=== PATIENT | female | born 1960 | race American Indian/Alaskan Native ===

== ENCOUNTER 2018-05-03 12:42 | Emergency (ER) | payer OTHER ==
--- NOTE | 2018-05-03 12:51 | ED PDOC ---
Arrival/HPI - General Historian: Patient <Rio Cunningham - Last Filed: 05/03/18 18:13> - General Historian: Patient - History of Present Illness Narrative History of Present Illness (Text): This is a 58 year old AA female with PMH of asthma who presents with intermittent dizziness since approximately 1030 am this morning. Pt states that she was sitting at work when the dizziness came on. It is described as feeling lightheaded, and unsteady on her feet. Pt also has nausea with the dizziness, but no vomiting. Pt had blurriness of the left eye for 30 minutes, but states it resolved on its own. Denies fever, chills, cp, sob, abdominal pain, v/d, hematochezia, melena, urinary complaints, cough, congestion, recent travel, sick contacts, care rides greater than 2 hours. PMH: Asthma, tooth extraction 2 weeks ago PSH: parotid gland surgery 19 years ago Meds: inhaler, completed course of amoxicillin for the tooth extraction, Ibuprofen for pain Allx: None Social hx: approximately 30 pack year history, social etoh use, denies illicit drug use Time/Duration: 1-3 hours Symptom Onset: Sudden Symptom Course: Intermittent <Rayshawn James - Last Filed: 05/03/18 20:35> - General Chief Complaint: Dizziness/Lightheaded Time Seen by Provider: 05/03/18 12:44 Past Medical History - Provider Review Nursing Documentation Reviewed: Yes - Infectious Disease Hx of Infectious Diseases: None - Tetanus Immunization Tetanus Immunization: Unknown - Cardiac Hx Cardiac Disorders: No - Pulmonary Hx Asthma: Yes - Neurological Hx Neurological Disorder: No - HEENT Hx HEENT Disorder: No - Renal Hx Renal Disorder: No - Endocrine/Metabolic Other/Comment: parotid gland swelling to left face front of left ear, when pt chews hard c/o drainage from behing right ear ever since having right parotid gland removed, c/o chronic pain to r and l face - Hematological/Oncological Hx Blood Disorders: No - Integumentary Hx Dermatological Disorder: No - Musculoskeletal/Rheumatological Hx Falls: No - Gastrointestinal Hx Gastrointestinal Disorders: No - Genitourinary/Gynecological Hx Genitourinary Disorders: No - Psychiatric Hx Depression: No Hx Emotional Abuse: No Hx Physical Abuse: No Hx Substance Use: No - Surgical History Hx Appendectomy: Yes Hx Carotid Endarterectomy: Yes Other/Comment: ectopic . ovarian cyst removed - Anesthesia Hx Anesthesia: Yes Hx Anesthesia Reactions: No Hx Malignant Hyperthermia: No - Suicidal Assessment Feels Threatened In Home Enviroment: No <Rayshawn James Last Filed: 05/03/18 20:35> Family/Social History - Physician Review Nursing Documentation Reviewed: Yes Family/Social History: Unknown Family HX Smoking Status: Heavy Smoker > 10 Cigarettes Daily Hx Alcohol Use: Yes Hx Substance Use: No Hx Substance Use Treatment: No <Rayshawn James - Last Filed: 05/03/18 20:35> Allergies/Home Meds <Rio Cunningham - Last Filed: 05/03/18 18:13> <Rayshawn James - Last Filed: 05/03/18 20:35> Allergies/Adverse Reactions: Allergies No Known Allergies Allergy (Verified 05/03/18 13:04) Review of Systems - Physician Review All systems were reviewed & negative as marked: Yes <Rio Cunningham - Last Filed: 05/03/18 18:13> - Physician Review All systems were reviewed & negative as marked: Yes - Review of Systems Eyes: Vision Changes (see HPI) Respiratory: Other (asthma requiring albuterol inhaler) Cardiovascular: Normal Gastrointestinal: Nausea. absent: Abdominal Pain, Stool Changes, Vomiting Genitourinary Female: Normal Skin: Normal Neurological: Dizziness Endocrine: Other (hot flashes; menopause) Psychiatric: Anxiety <Rayshawn James - Last Filed: 05/03/18 20:35> Physical Exam Vital Signs Temp Pulse Resp BP Pulse Ox 05/03/18 13:06 98.3 F 86 16 103/50 L 96 <Rio Cunningham - Last Filed: 05/03/18 18:13> Vital Signs Reviewed: Yes Temperature: Afebrile Blood Pressure: Normal (repeat is 133/) Pulse: Regular Respiratory Rate: Normal Appearance: Positive for: Well-Appearing, Non-Toxic Pain Distress: None Mental Status: Positive for: Alert and Oriented X 3 - Systems Exam Head: Present: Atraumatic, Normocephalic Pupils: Present: PERRL Extroacular Muscles: Present: EOMI Conjunctiva: Present: Normal Mouth: Present: Moist Mucous Membranes Neck: Present: Normal Range of Motion, Other ((+) dizziness on rapid neck movement). No: Bruit Respiratory/Chest: Present: Rhonchi (RLL). No: Respiratory Distress, Wheezes, Decreased Breath Sounds, Rales, Tachypneic Cardiovascular: Present: Regular Rate and Rhythm, Normal S1, S2 Abdomen: Present: Normal Bowel Sounds. No: Tenderness, Distention, Rebound, Guarding Upper Extremity: Present: Normal Inspection, NORMAL PULSES Lower Extremity: Present: Normal Inspection, NORMAL PULSES Neurological: Present: GCS=15, CN II-XII Intact, Speech Normal, Motor Func Grossly Intact Skin: Present: Warm Psychiatric: Present: Alert, Oriented x 3, Anxious <Rayshawn James - Last Filed: 05/03/18 20:35> Medical Decision Making ED Course and Treatment: 05/03/18 Patient Seen with Resident: In agreement with resident note which contains more details about the patient. Patient seen and evaluated with resident. Came up with plan and treatment tog ether. Impression: 58 year old female who is complaining of intermittent dizziness with associated nausea that started earlier today. Plan: --EKG -- Antivert -- Zofran -- IV fluids -- Head Ct without contrast -- Labs -- Cardiac enzymes -- CBC -- Chest X-ray - Lab Interpretations Lab Results: 05/03/18 13:55 05/03/18 13:55 Lab Results 05/03/18 13:55: Sodium 139, Potassium 3.7, Chloride 104, Carbon Dioxide 26, Ani [place] 12, BUN 16, Creatinine 1.1, Est GFR ( Amer) > 60, Est GFR (Non-Af Amer) 51, Random Glucose 113 H, Calcium 9.9, Phosphorus 3.3, Magnesium 2.0, Total Bilirubin 0.3, AST 28, ALT 29, Alkaline Phosphatase 80, Troponin I < 0.01, Total Protein 7.5, Albumin 4.4, Globulin 3.1, Albumin/Globulin Ratio 1.4 05/03/18 13:55: WBC 8.1, RBC 4.70, Hgb 13.1, Hct 39.9, MCV 84.9, MCH 27.9, MCHC 32.8, RDW 12.7, Plt Count 281, MPV 10.1, Gran % 51.1, Lymph % (Auto) 41.2 H, [place] % (Auto) 5.3, Eos % (Auto) 2.2, Baso % (Auto) 0.2, Gran # 4.14, Lymph # (Auto) 3.3, [place] # (Auto) 0.4, Eos # (Auto) 0.2, Baso # (Auto) 0.02 I have reviewed the lab results: Yes - RAD Interpretation Narrative RAD Interpretations (Text): 05/03/[address] without contrast: Dictator : Avinash Cordova MD FINDINGS: HEMORRHAGE: No intracranial hemorrhage. BRAIN: No mass effect or edema. No atrophy or chronic microvascular ischemic changes. VENTRICLES: Unremarkable. No hydrocephalus. CALVARIUM: Unremarkable. PARANASAL SINUSES: Unremarkable as visualized. No significant inflammatory changes. MASTOID AIR CELLS: Unremarkable as visualized. No inflammatory changes. OTHER FINDINGS: None. IMPRESSION: No acute findings 05/03/18 Chest X-ray: Dictator : Avinash Cordova MD FINDINGS: LUNGS: No active pulmonary disease. PLEURA: No significant pleural effusion identified, no pneumothorax apparent. CARDIOVASCULAR: No aortic atherosclerotic calcification present. Normal cardiac size. No pulmonary vascular congestion. OSSEOUS STRUCTURES: No significant abnormalities. VISUALIZED UPPER ABDOMEN: Normal. OTHER FINDINGS: None. IMPRESSION: No active disease. Radiology Orders: 05/03/18 13:25 HEAD W/O CONTRAST [CT] Stat CXR [CHEST PORTABLE] [RAD] Stat Afternoon Babysitter: Radiologist - EKG Interpretation EKG Interpretation (Text): 05/03/18 14:56 EKG shows NSR at 94 BPM with LAFB. No T wave inversions or ST depression. Interpreted by me. Interpreted by ED Physician: Yes Type: 12 lead EKG - Medication Orders Current Medication Orders: Discontinued Medications Sodium Chloride (Sodium Chloride 0.9%) 1,000 mls @ 999 mls/hr IV .Q1H1M STA Stop: 05/03/18 14:24 Last Admin: 05/03/18 13:37 Dose: 999 mls/hr eMAR Start Stop Document 05/03/18 13:37 BERTHA (Rec: 05/03/18 13:37 BERTHA [id number]) Intravenous Solution Start Date 05/03/18 Start Time 13:37 End Date 05/03/18 End time 14:37 Total Infusion Time 60 Meclizine HCl (Antivert) 25 mg PO STAT STA Stop: 05/03/18 13:47 Last Admin: 05/03/18 14:26 Dose: 25 mg Ondansetron HCl (Zofran Inj) 4 mg IVP STAT STA Stop: 05/03/18 13:25 Last Admin: 05/03/18 13:36 Dose: 4 mg IVP Administration Document 05/03/18 13:36 BERTHA (Rec: 05/03/18 13:36 BERTHA [id number]) Charges for Administration # of IVP Administrations 1 <Rio Cunningham - Last Filed: 05/03/18 18:13> ED Course and Treatment: 05/03/18 14:18 Pt presents with sudden onset of dizziness and nausea. Head CT without contrast, CBC, CMP, Troponin, CXR. Will give zofran for nausea, as well as meclizine and NS IVF 1 L bolus. On re-evaluation, pt feels better. No dizziness. I ambulated the patient without difficulty. Pt states that she would like to go home. Reassessment Condition: Re-examined, Improved - Lab Interpretations I have reviewed the lab results: Yes <Rayshawn James - Last Filed: 05/03/18 20:35> - Scribe Statement The provider has reviewed the documentation as recorded by the [employer] [place] Provider Scribe Attestation: All medical record entries made by the Scribe were at my direction and personally dictated by me. I have reviewed the chart and agree that the record accurately reflects my personal performance of the history, physical exam, medical decision making, and the department course for this patient. I have also personally directed, reviewed, and agree with the discharge instructions and disposition. <Rio Cunningham - Last Filed: 05/03/18 18:13> Disposition/Present on Arrival - Present on Arrival Any Indicators Present on Arrival: No - Disposition Have Diagnosis and Disposition been Completed?: Yes Disposition Time: 15:33 <Rio Cunningham - Last Filed: 05/03/18 18:13> - Present on Arrival Any Indicators Present on Arrival: No History of DVT/PE: No History of Uncontrolled Diabetes: No Urinary Catheter: No History Surgical Site Infection Following: None - Disposition Have Diagnosis and Disposition been Completed?: Yes Patient Plan: Discharge <Rayshawn James Last Filed: 05/03/18 20:35> - Disposition Diagnosis: Vertigo, Anxiety Disposition: HOME/ ROUTINE Condition: GOOD Discharge Instructions (ExitCare): Vertigo (a Type of Dizziness) (DC), Anxiety, Adult (DC) Prescriptions: Meclizine [Antivert] 12.5 mg PO PRN PRN #10 tab PRN Reason: Motion Sickness Ondansetron ODT [Zofran ODT] 4 mg PO Q6H #4 odt Referrals: Maria T Crowell MD [Medical Doctor] - Follow up with primary [facility] [place] [Outside] - Follow up with primary Forms: [facility] (Sing[place]an), WORK NOTE
[2018-05-03 13:09] VITALS: RESP 16; TEMP 98.3; BMI 30.5
[2018-05-03] MEDS ORDERED: Sodium Chloride 0.9% 1,000 ML IV STA (13:24)
--- NOTE | 2018-05-03 14:04 | RAD ---
Date of service: 05/03/2018 HISTORY: ronchus breath sounds COMPARISON: 09/14/2016 FINDINGS: LUNGS: No active pulmonary disease. PLEURA: No significant pleural effusion identified, no pneumothorax apparent. CARDIOVASCULAR: No aortic atherosclerotic calcification present. Normal cardiac size. No pulmonary vascular congestion. OSSEOUS STRUCTURES: No significant abnormalities. VISUALIZED UPPER ABDOMEN: Normal. OTHER FINDINGS: None. IMPRESSION: No active disease.
[2018-05-03 14:26] LABS: BASO # 0.02 K/mm3 (0.0-2.0); BASO % 0.2 % (0.0-3.0); EOS # 0.2 (0.0-0.7); EOS % 2.2 % (1.5-5.0); GRAN # 4.14 (1.4-6.5); GRAN % 51.1 % (50.0-68.0); HEMOGLOBIN 13.1 g/dL (12.0-16.0); LYMPH # 3.3 (1.2-3.4); LYMPH % 41.2 % (22.0-35.0); MEAN CELL VOLUME 84.9 fl (80.0-105.0); MEAN CORPUSCULAR HEMOGLOBIN 27.9 pg (25.0-35.0); MEAN CORPUSCULAR HGB CONC 32.8 g/dl (31.0-37.0); MEAN PLATELET VOLUME 10.1 fl (7.0-11.0); MONO # 0.4 (0.1-0.6); MONO % 5.3 % (1.0-6.0); RBC 4.7 10^6/uL (3.5-6.1); RED CELL DISTRIBUTION WIDTH 12.7 % (11.5-14.5); WHITE BLOOD COUNT 8.1 10^3/uL (4.5-11.0)
--- NOTE | 2018-05-03 14:29 | CT ---
Date of service: 05/03/2018 PROCEDURE: CT HEAD WITHOUT CONTRAST. HISTORY: dizziness COMPARISON: None available. TECHNIQUE: Axial computed tomography images were obtained through the head/brain without intravenous contrast. Radiation dose: Total exam DLP = 839.63 mGy-cm. This CT exam was performed using one or more of the following dose reduction techniques: Automated exposure control, adjustment of the mA and/or kV according to patient size, and/or use of iterative reconstruction technique. FINDINGS: HEMORRHAGE: No intracranial hemorrhage. BRAIN: No mass effect or edema. No atrophy or chronic microvascular ischemic changes. VENTRICLES: Unremarkable. No hydrocephalus. CALVARIUM: Unremarkable. PARANASAL SINUSES: Unremarkable as visualized. No significant inflammatory changes. MASTOID AIR CELLS: Unremarkable as visualized. No inflammatory changes. OTHER FINDINGS: None. IMPRESSION: No acute findings
[2018-05-03 14:40] LABS: ALB/GLOB RATIO 1.4 (1.1-1.8)
[2018-05-03 14:49] LABS: ALBUMIN 4.4 g/dL (3.0-4.8); ALT/SGPT 29 U/L (7-56); AST/SGOT 28 U/L (14-36); BLOOD UREA NITROGEN 16 mg/dL (7-21); CALCIUM 9.9 mg/dL (8.4-10.5); GFR NON-AFRICAN AMERICAN 51
[2018-05-03 14:51] LABS: TROPONIN I < 0.01 ng/mL
--- NOTE | 2018-05-03 15:15 | CARD ---
APPROVED REPORT Date of service: 05/03/2018 EKG Measurement Heart [id number] <Conclusion> Normal sinus rhythm Normal Electrocardiogram
[2018-05-03 15:49] VITALS: BP 143/90; PULSE 80; O2SAT 97
== END 2018-05-03 15:48 | disposition home or self-care (01) ==
LOC: ED 12:42
DX: F41.9 Anxiety disorder, unspecified (principal); R42 Dizziness and giddiness; F17.210 Nicotine dependence, cigarettes, uncomplicated
CPT/HCPCS: 70450; 71045; 80053; 82948; 83735; 84100; 84484; 85025; 93005; 96361; 96374; 99285; J2405; J7030

== ENCOUNTER 2018-10-22 07:21 | Emergency (ER) | payer OTHER ==
[2018-10-22 07:28] VITALS: BMI 29.3
--- NOTE | 2018-10-22 07:40 | ED PDOC ---
Arrival/HPI - General Chief Complaint: Back Pain Time Seen by Provider: 10/22/18 07:24 Historian: Patient - History of Present Illness Narrative History of Present Illness (Text): 10/22/18 07:36 58 year old female, whose Past medical history includes asthma, who presents to the emergency department complaining of lower back pain and spasms for the past 3 days. Patient reports symptoms began after she sneezed, and states she woke up this morning with significant amount of pain, causing her to come to ER today. Patient endorses a fall 2 months ago, and states she had an X-ray done, with no significant findings. Patient denies any nausea, vomiting, shortness of breath, bowel or bladder incontinence/retention, dysuria, chest pain, or any other somatic complaints. Time/Duration: < week Symptom Onset: Sudden Symptom Course: Unchanged Activities at Onset: Light Context: Home Past Medical History - Provider Review Nursing Documentation Reviewed: Yes - Infectious Disease Hx of Infectious Diseases: None - Tetanus Immunization Tetanus Immunization: Unknown - Reproductive Menopause: Yes - Cardiac Hx Cardiac Disorders: No - Pulmonary Hx Asthma: Yes - Neurological Hx Neurological Disorder: Yes Hx Vertigo: Yes - HEENT Hx HEENT Disorder: No - Renal Hx Renal Disorder: No - Endocrine/Metabolic Other/Comment: parotid gland swelling to left face front of left ear, when pt chews hard c/o drainage from behing right ear ever since having right parotid gland removed, c/o chronic pain to r and l face - Hematological/Oncological Hx Blood Disorders: No - Integumentary Hx Dermatological Disorder: No - Musculoskeletal/Rheumatological Hx Falls: No - Gastrointestinal Hx Gastrointestinal Disorders: No - Genitourinary/Gynecological Hx Genitourinary Disorders: No - Psychiatric Hx Depression: No Hx Emotional Abuse: No Hx Physical Abuse: No Hx Substance Use: No - Surgical History Hx Appendectomy: Yes Hx Carotid Endarterectomy: Yes Other/Comment: ectopic . ovarian cyst removed - Anesthesia Hx Anesthesia: Yes Hx Anesthesia Reactions: No Hx Malignant Hyperthermia: No - Suicidal Assessment Feels Threatened In Home Enviroment: No Family/Social History - Physician Review Nursing Documentation Reviewed: Yes Family/Social History: Unknown Family HX Smoking Status: Heavy Smoker > 10 Cigarettes Daily Hx Alcohol Use: Yes Hx Substance Use: No Hx Substance Use Treatment: No Allergies/Home Meds Allergies/Adverse Reactions: Allergies No Known Allergies Allergy (Verified 05/03/18 13:04) Review of Systems - Physician Review All systems were reviewed & negative as marked: Yes - Review of Systems Respiratory: absent: SOB, Cough Cardiovascular: absent: Chest Pain Gastrointestinal: absent: Abdominal Pain, Nausea, Vomiting Genitourinary Female: absent: Dysuria Musculoskeletal: Back Pain (lower back) Neurological: absent: Headache, Dizziness Physical Exam Vital Signs Reviewed: Yes Temperature: Afebrile Blood Pressure: Normal Pulse: Regular Respiratory Rate: Normal Appearance: Positive for: Well-Appearing, Non-Toxic, Uncomfortable (Anxious appearing), Other Pain Distress: None Mental Status: Positive for: Alert and Oriented X 3 - Systems Exam Head: Present: Atraumatic, Normocephalic Pupils: Present: PERRL Extroacular Muscles: Present: EOMI Conjunctiva: Present: Normal Mouth: Present: Moist Mucous Membranes Neck: Present: Normal Range of Motion Respiratory/Chest: Present: Clear to Auscultation, Good Air Exchange. No: Respiratory Distress, Accessory Muscle Use Cardiovascular: Present: Regular Rate and Rhythm, Normal S1, S2. No: Murmurs Abdomen: No: Tenderness, Distention, Peritoneal Signs Back: Present: Other (+Paralumbar tenderness) Upper Extremity: Present: Normal Inspection. No: Cyanosis, Edema Lower Extremity: Present: Normal Inspection. No: Edema Neurological: Present: GCS=15, Speech Normal Skin: Present: Warm, Dry, Normal Color. No: Rashes Psychiatric: Present: Alert, Oriented x 3, Normal Insight, Normal Concentration Medical Decision Making ED Course and Treatment: 10/22/18 07:42 Impression: 58 year old female presents to the emergency department complaining of lower back pain x 3 days. Differential Diagnosis included but are not limited to: Plan: -- Tylenol -- Flexeril -- Toradol -- Reassess and disposition Prior Visits: Notes and results from previous visits were reviewed. Progress Notes: 10/22/18 14:35 exam consitst with msk pain. pain s/p "sneezing". neuro intact in er. no saddle anestehai. no uairnry retnetion. seen ambulating. pt very anxious appearing iner. offered xr. family and pt decliens as low prob of fracture given no direct trauma. - Scribe Statement The provider has reviewed the documentation as recorded by the Scribe Valdez Thurston All medical record entries made by the Andrez were at my direction and personally dictated by me. I have reviewed the chart and agree that the record accurately reflects my personal performance of the history, physical exam, medical decision making, and the department course for this patient. I have also personally directed, reviewed, and agree with the discharge instructions and disposition. Disposition/Present on Arrival - Present on Arrival Any Indicators Present on Arrival: No History of DVT/PE: No History of Uncontrolled Diabetes: No Urinary Catheter: No History of Decub. Ulcer: No History Surgical Site Infection Following: None - Disposition Have Diagnosis and Disposition been Completed?: Yes Diagnosis: Low back pain Disposition: HOME/ ROUTINE Disposition Time: 07:40 Condition: STABLE Discharge Instructions (ExitCare): Low Back Pain in Adults, Do I Need an X-ray (or Other Test) for Low Back Pain? Additional Instructions: return to er with worsening. see specialist. Prescriptions: Cyclobenzaprine [Cyclobenzaprine HCl] 10 mg PO DAILY PRN #10 tab PRN Reason: Muscle Spasm Lidocaine 5% [Lidoderm] 1 ea TD DAILY PRN #4 patch PRN Reason: Pain, Mild (1-3) Naproxen 500 mg PO BID PRN #14 tablet PRN Reason: Pain, Mild (1-3) Forms: [employer] [facility] ([place]ian)
[2018-10-22 07:50] VITALS: BP 138/82; PULSE 90; RESP 18; TEMP 98.1; O2SAT 100
== END 2018-10-22 08:59 | disposition home or self-care (01) ==
LOC: ED 07:21
DX: M54.5 Low back pain (principal); F17.210 Nicotine dependence, cigarettes, uncomplicated
CPT/HCPCS: 96372; 99283; J1885

== ENCOUNTER 2018-10-25 18:24 | Emergency (ER) | payer OTHER ==
[2018-10-25 18:24] VITALS: BMI 29.3
[2018-10-25] MEDS ORDERED: Oxycodone/Acetaminophen 5/325 mg Tab PO STA (18:42)
[2018-10-25 18:52] VITALS: RESP 18; O2SAT 100
--- NOTE | 2018-10-25 20:03 | ED PDOC ---
Arrival/HPI - General Chief Complaint: Back Pain Time Seen by Provider: 10/25/18 18:24 Historian: Patient - History of Present Illness Narrative History of Present Illness (Text): 10/25/18 20:05 58 y/o female with PMH of presents to the ED c/o lower back pain and right hip pain x 2 months s/p fall, that worsened 3 days ago. Pt fell on her right hip at work 2 months ago. She sneezed 3 days ago and since that time has had severe lower back pain. Pt was seen in this ED 3 days ago and discharged home with prescriptions for naproxen and flexeril, which have not been relieving the pain. Last dose naproxen 1700. Denies fever, chills, abdominal pain, urinary symptoms, extremity pain/swelling, numbness, weakness, paresthesias, saddle anesthesia, urinary/bowel incontinence. Past Medical History - Provider Review Nursing Documentation Reviewed: Yes - Infectious Disease Hx of Infectious Diseases: None - Tetanus Immunization Tetanus Immunization: Unknown - Reproductive Menopause: No - Cardiac Hx Cardiac Disorders: No - Pulmonary Hx Asthma: Yes - Neurological Hx Neurological Disorder: Yes Hx Vertigo: Yes - HEENT Hx HEENT Disorder: No - Renal Hx Renal Disorder: No - Hematological/Oncological Hx Blood Disorders: No - Integumentary Hx Dermatological Disorder: No - Musculoskeletal/Rheumatological Hx Falls: No - Gastrointestinal Hx Gastrointestinal Disorders: No - Genitourinary/Gynecological Hx Genitourinary Disorders: No - Psychiatric Hx Depression: No Hx Emotional Abuse: No Hx Physical Abuse: No Hx Substance Use: No - Surgical History Hx Appendectomy: Yes Hx Carotid Endarterectomy: Yes Other/Comment: ectopic . ovarian cyst removed - Anesthesia Hx Anesthesia: Yes Hx Anesthesia Reactions: No Hx Malignant Hyperthermia: No - Suicidal Assessment Feels Threatened In Home Enviroment: No Family/Social History - Physician Review Nursing Documentation Reviewed: Yes Family/Social History: No Known Family HX Smoking Status: Heavy Smoker > 10 Cigarettes Daily Hx Alcohol Use: Yes Hx Substance Use: No Hx Substance Use Treatment: No Allergies/Home Meds Allergies/Adverse Reactions: Allergies No Known Allergies Allergy (Verified 05/03/18 13:04) Review of Systems - Review of Systems Constitutional: Normal. absent: Fevers Eyes: Normal. absent: Vision Changes, Eye Pain ENT: Normal. absent: Sore Throat, Sinus Congestion Respiratory: Normal. absent: SOB, Cough Cardiovascular: Normal. absent: Chest Pain, Palpitations, Syncope Gastrointestinal: Normal. absent: Abdominal Pain, Stool Changes, Constipation, Diarrhea, Nausea, Vomiting, Appetite Changes Genitourinary Female: Normal. absent: Dysuria, Frequency, Vaginal Bleeding, Va ginal Discharge Musculoskeletal: Back Pain Skin: Normal. absent: Rash, Cellulitis Neurological: Normal. absent: Headache, Dizziness Physical Exam Vital Signs Reviewed: Yes Vital Signs Temp Pulse Resp BP Pulse Ox 10/25/18 18:27 97.9 F 92 H 18 144/84 98 Temperature: Afebrile Blood Pressure: Normal Pulse: Regular Respiratory Rate: Normal Appearance: Positive for: Well-Appearing, Non-Toxic, Uncomfortable Pain Distress: Moderate Mental Status: Positive for: Alert and Oriented X 3 - Systems Exam Head: Present: Atraumatic, Normocephalic Pupils: Present: PERRL Extroacular Muscles: Present: EOMI Conjunctiva: Present: Normal Mouth: Present: Moist Mucous Membranes Neck: Present: Normal Range of Motion. No: Meningeal Signs, MIDLINE TENDERNESS, Paraspinal Tenderness Respiratory/Chest: Present: Clear to Auscultation, Good Air Exchange. No: Respiratory Distress, Accessory Muscle Use Cardiovascular: Present: Regular Rate and Rhythm, Normal S1, S2, Peripheal Pulses Present Abdomen: Present: Normal Bowel Sounds. No: Tenderness, Distention, Peritoneal Signs, Rebound, Guarding Back: Present: Normal Inspection, Pain with Leg Raise (bilateral). No: CVA Tenderness, Midline Tenderness, Paraspinal Tenderness Upper Extremity: Present: Normal Inspection, Normal ROM, NORMAL PULSES, Neurovascularly Intact, Capillary Refill < 2s. No: Cyanosis, Edema, Temperature Abnormalties Lower Extremity: Present: Normal Inspection, NORMAL PULSES, Normal ROM, Neurovascularly Intact, Capillary Refill < 2 s. No: Edema, Temperature Abnormalties Neurological: Present: GCS=15, CN II-XII Intact, Speech Normal, Motor Func Grossly Intact, Normal Sensory Function, Gait Normal Skin: Present: Warm, Dry, Normal Color. No: Rashes Psychiatric: Present: Alert, Oriented x 3, Normal Insight, Normal Concentration, Normal Affect, Normal Mood Medical Decision Making ED Course and Treatment: 10/25/18 20:01 Initial Plan: * POC preg * Percocet * UA * CT hip * CT lumbar spine 20:00 Patient reports significant improvement in pain with percocet. Patient able to walk back and forth to the bathroom with steady gait without assistance. UA shows no UTI Imaging negative for acute pathology but shows severe facet athropathy at L4/5 and L5/S1. Pt given copies of CT reports. Pt resting comfortably in stretcher. No complaints of saddle anesthesia, bowel/bladder retention or incontinence, extremity pain, numbness, weakness, urinary symptoms, abdominal pain, fever. Advised orthopedic and PMD followup. Diagnostic testing results and plan of care discussed with patient. Strict instructions given regarding prescription use, importance of followup, and signs/symptoms to return to ER including saddle anesthesia, bowel/bladder retention or incontinence, extremity pain, numbness, weakness, urinary symptoms, abdominal pain, fever or any other new/worsening symptoms. Pt verbalized understanding of discussion. Patient is A&Ox3, ambulating with steady gait, with vital signs stable for discharge. - Lab Interpretations Lab Results: Lab Results 10/25/18 20:08: Urine Color Yellow, Urine Appearance Clear, Urine pH 5.0, Ur Specific [place] >= 1.030, Urine Protein Trace H, Urine Glucose (UA) Negative, Urine Ketones Negative, Urine Blood Small H, Urine Nitrate Negative, Urine Bilirubin Negative, Urine Urobilinogen 0.2, Ur Leukocyte Esterase Negative, Urine RBC 0 - 2, Urine WBC 0 - 2, Ur Epithelial Cells 10 - 12 H I have reviewed the lab results: Yes - RAD Interpretation Narrative RAD Interpretations (Text): 10/25/18 21:[address]: FINDINGS: ALIGNMENT: Bony alignment is anatomic. DISCS/DEGENERATIVE CHANGES: T12/L1: No significant central canal or neural foraminal stenosis. Mild bilateral apophyseal facet arthropathy. L1/L2: No significant central canal or neural foraminal stenosis. Mild bilateral apophyseal facet arthropathy. L2/L3: No significant central canal or neural foraminal stenosis. Moderate bilateral apophyseal facet arthropathy. L3/4: No significant central canal or neural foraminal stenosis. Moderate bilateral apophyseal facet arthropathy. L4/5: No significant central canal or neural foraminal stenosis. Marked hypertrophic bilateral apophyseal facet arthropathy. L5/S1: No significant central canal or neural foraminal stenosis. Marked hypertrophic bilateral apophyseal facet arthropathy. BONES: No acute fracture or aggressive appearing osseous lesion. The disc interspaces appear adequately maintained at all levels. SOFT TISSUES: The soft tissues are unremarkable. IMPRESSION: 1. No acute lumbar spine abnormality. 2. Bilateral apophyseal facet arthropathy as described above; most pronounced at L4-5 and L5-S1. Electronically signed on Oct 25, 2018 9:01:56 PM EDT by: Tanner Ledbetter M.D., M.B.A., Certified By [employer] Trained MRI and CT Specialist Right Hip CT: FINDINGS: BONES: No acute fracture or aggressive appearing osseous lesion. JOINTS: No dislocation. The joint spaces are normal. SOFT TISSUES: Incidental note is made of a calcified degenerating uterine fibroid in the inferolateral right uterine body. IMPRESSION: 1. No acute osseous abnormality. 2. Incidental discovery is made of a calcified degenerating uterine fibroid in the inferolateral right uterine body. Electronically signed on Oct 25, 2018 9:13:14 PM EDT by: Tanner Ledbetter M.D., M.B.A., Certified By [employer] Trained MRI and CT Specialist Radiology Orders: 10/25/18 19:08 LUMBAR SPINE W/O CONTRAST [CT] Stat 10/25/18 19:24 HIP WITHOUT CONTRAST RIGHT [CT] Stat Case Management Manager: Radiologist - Medication Orders Current Medication Orders: Discontinued Medications Oxycodone/Acetaminophen (Percocet 5/325 Mg Tab) 1 tab PO STAT STA Stop: 10/25/18 18:43 Last Admin: 10/25/18 18:59 Dose: 1 tab [facility] Pain Assessment Document 10/25/18 18:[address] [facility] (Rec: 10/25/18 19:00 [id number]) Pain Reassessment Is this a pain reassessment? No Sleep Is patient sleeping during reassessment? No Presence of Pain Presence of Pain Yes Pain Scale Used Protocol: PSCALES Pain Scale Used Numeric Location Left, Right or Bilateral Bilateral Upper or Lower Lower Pain Location Body Site Back Description Description Constant Intensity of Pain at present 10 Acceptable Level of Pain 5 Pain Behavior Crying Aggravating Factors ADL's Changing Position Disposition/Present on Arrival - Present on Arrival Any Indicators Present on Arrival: No History of DVT/PE: No History of Uncontrolled Diabetes: No Urinary Catheter: No History of Decub. Ulcer: No History Surgical Site Infection Following: None - Disposition Have Diagnosis and Disposition been Completed?: Yes Diagnosis: Back pain Disposition: HOME/ ROUTINE Disposition Time: 21:30 Patient Plan: Discharge Condition: IMPROVED Discharge Instructions (ExitCare): Low Back Pain in Adults, Back Exercises Additional Instructions: Ibuprofen every 8 hours as needed for pain, take with food Tramadol every 8 hours as needed for severe pain Followup with orthopedic doctor within 2 days Followup with primary doctor within 2 days Return to ER with any new/worsening symptoms Prescriptions: Ibuprofen [Motrin Tab] 600 mg PO Q8 PRN #30 tab PRN Reason: Pain, Moderate (4-7) traMADol [Ultram] 50 mg PO Q8 PRN #12 tab PRN Reason: Pain, Severe (8-10) Referrals: [facility] [place] - Follow up with primary Avinash Bassett DO [Staff Provider] - Follow up with primary Maria T Crowell MD [Medical Doctor] - Follow up with primary Forms: [facility] (Yakut), WORK NOTE
[2018-10-25 20:21] LABS: URINE BILIRUBIN NEGATIVE (NEGATIVE); URINE BLOOD SMALL (NEGATIVE); URINE GLUCOSE (UA) NEGATIVE (NEGATIVE); URINE LEUKOCYTE ESTERASE NEGATIVE Leu/uL (NEGATIVE); URINE PROTEIN TRACE mg/dL (<30 mg/dL); URINE UROBILINOGEN 0.2 E.U./dL (<1 E.U./dL)
[2018-10-25 20:22] LABS: URINE APPEARANCE CLEAR (CLEAR); URINE COLOR YELLOW (YELLOW)
[2018-10-25 20:49] LABS: URINE RBC 0 - 2 /hpf (0-2); URINE WBC 0 - 2 /hpf (0-6)
[2018-10-25 20:54] VITALS: BP 151/74; PULSE 80; TEMP 98
--- NOTE | 2018-10-26 11:02 | CT ---
Date of service: 10/25/2018 PROCEDURE: CT Lumbar Spine without contrast HISTORY: lower back pain, s/p injury 2 months ago COMPARISON: None available. TECHNIQUE: Axial computed tomography images were obtained of the lumbar spine without the use of intravenous contrast. Coronal and sagittal reformatted images were created and reviewed. Radiation dose: Total exam DLP = 817.57 mGy-cm. This CT exam was performed using one or more of the following dose reduction techniques: Automated exposure control, adjustment of the mA and/or kV according to patient size, and/or use of iterative reconstruction technique. FINDINGS: VERTEBRAE: Unremarkable. No fracture. Normal alignment. DISCS/SPINAL CANAL/NEURAL FORAMINA: L1-2: Unremarkable. L2-3: Unremarkable. L3-4: Unremarkable. L4-5: Unremarkable. L5-S1: Unremarkable. PARASPINAL SOFT TISSUES: Unremarkable. OTHER FINDINGS: There is severe facet arthropathy at L4-5 and L5-S1. The report concurs with the preliminary [employer] report IMPRESSION: There is severe facet arthropathy at L4-5 and L5-S1. no significant stenosis
--- NOTE | 2018-10-26 11:06 | CT ---
Date of service: 10/25/2018 PROCEDURE: CT of the right hip without contrast HISTORY: hip pain s/p trauma 2 months ago COMPARISON: TECHNIQUE: Radiation dose: Total exam DLP = 545 mGy-cm. This CT exam was performed using one or more of the following dose reduction techniques: Automated exposure control, adjustment of the mA and/or kV according to patient size, and/or use of iterative reconstruction technique. FINDINGS: There are no degenerative changes seen in the right hip. There is no joint space narrowing or osteophyte formation. There is no evidence of fracture. There is no soft tissue edema or hemorrhage. The report concurs with the preliminary [employer] report IMPRESSION: Negative study
== END 2018-10-25 21:50 | disposition home or self-care (01) ==
LOC: ED 18:24
DX: M54.5 Low back pain (principal)